=== PATIENT | male | born 1955 | race African-American/Black ===

== ENCOUNTER 2019-04-27 14:53 | Emergency (ER) | payer BC, OTHER ==
[~2019-04-27] VITALS: Ht 175.3 cm; Wt 100.0 kg
[~2019-04-27 14:53] MED LIST: ASPI-1158 PO; METO25TA6 PO
[2019-04-27] MEDS ORDERED: IBUPROFEN 800MG TABLET PO ONE (19:00)
[2019-04-27] MEDS ORDERED: ACETAMINOPHEN 500MG TABLET PO ONE (19:00)
[2019-04-27 19:20] VITALS: BP 154/90
== END 2019-04-27 21:02 | disposition home or self-care (01) ==
LOC: ER 14:53
DX: S39.012A Strain of muscle, fascia and tendon of lower back, initial encounter (principal); X58.XXXA Exposure to other specified factors, initial encounter; Y93.89 Activity, other specified; Y92.89 Other specified places as the place of occurrence of the external cause; Y99.8 Other external cause status; Z95.0 Presence of cardiac pacemaker; Z79.82 Long term (current) use of aspirin
CPT/HCPCS: 72100; 99283